=== PATIENT | male | born 1955 | race Caucasian/White ===

== ENCOUNTER → 2017-05-12 | Outpatient (CLI) | payer OTHER | LOC: FIMAGING 16:04 | PROVIDERS: ATTEND Internal Medicine Infectious Disease | DX: S68.622A Partial traumatic transphalangeal amputation of right middle finger, initial encounter (principal); L03.011 Cellulitis of right finger ==

== ENCOUNTER → 2017-05-22 | Day surgery (SDC) | payer OTHER | END | disposition home or self-care (01) | LOC: FIMAGING 10:45 | PROVIDERS: ATTEND Internal Medicine Infectious Disease | PROC: 02HV33Z Insertion of Infusion Device into Superior Vena Cava, Percutaneous Approach (ICD-10-PCS; principal; 2017-05-22) | DX: M86.9 Osteomyelitis, unspecified (principal); Z79.2 Long term (current) use of antibiotics | CPT/HCPCS: 36569; 77001; C1751 ==

== ENCOUNTER 2017-08-21 10:57 | Emergency (ER) | payer OTHER ==
--- NOTE | 2017-08-21 12:17 | EDPHY ---
H & P Time Seen by Provider: 08/21/17 12:01 HPI/ROS: CHIEF COMPLAINT: Possible infection right middle digit HISTORY OF PRESENT ILLNESS: 61-year-old male with recent history of right middle digit osteomyelitis followed by Dr. Damion Berman and the [facility], has been off of antibiotics for 2 months was at work today, sustained an abrasion to the distal aspect of his right middle digit and noticed purulent discharge from his subungual space. He called [facility] and was recommended he come to the ER for evaluation. States that he has overall been feeling well no bowel and has had no complaints of pain or discomfort to the middle digit or other digits. No fever no chills no malaise. PHYSICAL EXAM (Prior to examination, patient consented to physical exam, hands were washed and my usual and customary physical exam procedures followed) 1) GENERAL: Well-developed, well-nourished, alert and oriented. Appears to be in no acute distress. 2) HEAD: Normocephalic 3) HEENT: sclera anicteric 4) LUNGS: Breathing comfortably. 5) SKIN: Granulating tissue to the distal phalanx of the right middle digit. No visible signs of infection. Negative kanavel sign. No subungual abnormality. Pressure on the subungual space produces purulent discharge distally. 6) MUSCULOSKELETAL: [ on the distal aspect the patient's right middle digit he has granulated tissue which has been excoriated revealing a cavitary lesion which tracks toward the bone with purulent discharge present. Negative kanavel. 7) NEUROLOGIC: Full sensation two-point discrimination intact distally. Smoking Status: Light smoker Constitutional: Initial Vital Signs Temperature (C) 36.7 C 08/21/17 11:35 Heart Rate 70 08/21/17 11:35 Respiratory Rate 18 08/21/17 11:35 Blood Pressure 107/65 08/21/17 11:35 O2 Sat (%) 92 08/21/17 11:35 O2 Delivery Mode Room Air Allergies/Adverse Reactions: No Allergies [NKDA] Allergy (Verified 08/21/17 11:34) Home Medications: Medication Instructions Recorded Amoxicillin/Clavulanate Pot 875 mg PO BID #14 tab 08/21/17 [Augmentin 875 mg tab] MDM/Departure - MDM Imaging Results: Images reviewed myself ED Course/Re-evaluation: 12:16 p.m. will obtain x-ray of the digit. I was able to produce amount of purulent discharge has been cultured and sent to laboratory. At this time doubt infectious tenosynovitis. 1:55 p.m.: Consultation with PA with Dr. Damion Berman who was not on-call for hand surgery today and is out of town on available to see the patient. Recommended that on-call hand surgery see the patient. 3:30 p.m.: Dr. Adan Ruiz, on-call hand surgery, has evaluated the patient in the ER, recommends antibiotics, does not think that washout currently indicated. 3:53 p.m.: Consultation with Dr. Popeye Delgado infectious disease who recommends patient be started on oral Augmentin and follow up with Dr. Damion Berman on Thursday as today is Thursday of the . - Depart Disposition: Home, Routine, Self-Care Clinical Impression: Finger infection Condition: Good Instructions: Cellulitis (ED) Additional Instructions: Return to the ER if you develop redness, swelling, discharge, warmth to the wound, red streaks going up your arm, or any other symptoms that concern you. Prescriptions: Amoxicillin/Clavulanate Pot [Augmentin 875 mg tab] 875 mg PO BID #14 tab Referrals: Damion Berman MD [Medical Doctor] - As per Instructions
[2017-08-21 14:41] LABS: PLATELET COUNT 139 10^3/uL (150-400)
[2017-08-21 16:16] VITALS: BP 118/79
== END 2017-08-21 16:17 | disposition home or self-care (01) ==
DX: L08.9 Local infection of the skin and subcutaneous tissue, unspecified (principal); F17.200 Nicotine dependence, unspecified, uncomplicated

== ENCOUNTER → 2018-07-01 | Outpatient (CLI) | payer OTHER | LOC: GIMAGING 14:48 | PROVIDERS: ATTEND Internal Medicine | DX: Z13.83 Encounter for screening for respiratory disorder NEC (principal) | CPT/HCPCS: 71046-PO ==